=== PATIENT | male | born 1985 | race Caucasian/White ===

== ENCOUNTER 2017-01-05 09:32 | Inpatient (IN) | payer MEDICAID ==
[~2017-01-05] VITALS: Ht 182.9 cm; Wt 112.0 kg
[2017-01-05 10:47] LABS: BASOPHIL % 0.7 % (0-2); PLATELET COUNT 237 x10^3mcL (130-400); RED CELL DISTRIBUTION WIDTH 13.3 % (11.5-14.5)
[2017-01-05 11:16] LABS: CALCIUM 8.6 mg/dL (8.5-10.1); CARBON DIOXIDE 25.9 mmol/L (21-32); CHLORIDE SERUM 105 mmol/L (98-107); CREATININE SERUM 0.8 mg/dL (0.7-1.3); GFR1 > 60 mL/min; GLUCOSE SERUM 98 mg/dL (74-106); POTASSIUM SERUM 4.3 mmol/L (3.5-5.1); SODIUM SERUM 140 mmol/L (136-145)
[2017-01-05 11:20] LABS: ALBUMIN 3.7 g/dL (3.4-5.0); ALKALINE PHOSPHATASE 85 U/L (46-116); ALT/SGPT 45 U/L (16-63); AST/SGOT 21 U/L (15-37); BILIRUBIN TOTAL 0.4 mg/dL (0.20-1.00); LIPASE 105 IU/L (73-393); MAGNESIUM 1.7 mg/dL (1.8-2.4); TOTAL PROTEIN, SERUM 7.2 g/dL (6.4-8.2)
[2017-01-05] MEDS ORDERED: ZANTAC 150150 MG PO (11:46)
[2017-01-05] MEDS ORDERED: NORCO1 TA2 PO (11:47)
[2017-01-05 11:59] LABS: AMPHETAMINE QUAL UR NONE DETECTED (NEG <=1000)
[2017-01-05 13:05] LABS: microscopic required? NO
[2017-01-05 13:09] LABS: UA SPECIFIC GRAVITY 1.025 (1.005-1.035); urine erythrocyte NEGATIVE (NEGATIVE)
[2017-01-05 13:26] LABS: FREE T4 1.03 ng/dL (0.76-1.46); FREE THYROXINE INDEX 2.4 ug/dL (1.4-4.5); T4(THYROXINE) 7.1 ug/dL (4.7-13.3)
[2017-01-05 13:51] LABS: T3 TOTAL 1.06 ng/mL
[2017-01-05 15:44] VITALS: BP 131/64
[2017-01-05 18:08] VITALS: BP 131/66
[2017-01-05 21:36] VITALS: BP 113/54
[2017-01-06 03:07] LABS: BASOPHIL % 0.5 % (0-2); PLATELET COUNT 225 x10^3mcL (130-400); RED CELL DISTRIBUTION WIDTH 13.6 % (11.5-14.5)
[2017-01-06 03:20] LABS: CALCIUM 8.3 mg/dL (8.5-10.1); CHLORIDE SERUM 106 mmol/L (98-107); CREATININE SERUM 0.9 mg/dL (0.7-1.3); GFR1 > 60 mL/min; GLUCOSE SERUM 100 mg/dL (74-106); MAGNESIUM 1.9 mg/dL (1.8-2.4); PHOSPHOROUS 5.3 mg/dL (2.5-4.9); POTASSIUM SERUM 4.4 mmol/L (3.5-5.1); SODIUM SERUM 140 mmol/L (136-145)
[2017-01-06 06:23] VITALS: BP 109/49
[2017-01-06 13:30] VITALS: BP 135/78
[2017-01-06 18:28] VITALS: BP 119/60
[2017-01-06 20:17] VITALS: BP 118/62
[2017-01-07 06:06] VITALS: BP 11/53; BP 111/53
[2017-01-07 06:19] LABS: BASOPHIL % 0.4 % (0-2); PLATELET COUNT 250 x10^3mcL (130-400); RED CELL DISTRIBUTION WIDTH 13.4 % (11.5-14.5)
[2017-01-07 06:25] LABS: CALCIUM 8.7 mg/dL (8.5-10.1); CARBON DIOXIDE 31.6 mmol/L (21-32); CHLORIDE SERUM 104 mmol/L (98-107); CREATININE SERUM 0.8 mg/dL (0.7-1.3); GFR1 > 60 mL/min; GLUCOSE SERUM 97 mg/dL (74-106); MAGNESIUM 2.1 mg/dL (1.8-2.4); PHOSPHOROUS 4.4 mg/dL (2.5-4.9); POTASSIUM SERUM 4.2 mmol/L (3.5-5.1); SODIUM SERUM 143 mmol/L (136-145)
[2017-01-07 08:35] VITALS: BP 114/69
[2017-01-07 08:37] VITALS: BP 114/69
[2017-01-07 09:25] VITALS: BP 113/61
[2017-01-07 09:39] VITALS: BP 115/65
[2017-01-07] MEDS ORDERED: OMEPRAZOLE40 M1 PO (09:59)
[2017-01-07] MEDS ORDERED: CARAFATE1 GM PO (10:00)
[2017-01-07 12:05] VITALS: BP 115/65
== END 2017-01-07 13:34 | disposition home or self-care (01) | DRG 243 ==
LOC: ED 09:32 → DU 12:19 → MU 12:19 → DU 14:53 → MU 01-06 15:46
PROVIDERS: Emergency Medicine; Internal Medicine; ADMIT Family Medicine
PROC: 0DB68ZX Excision of Stomach, Via Natural or Artificial Opening Endoscopic, Diagnostic (ICD-10-PCS; principal; 2017-01-07 09:15)
DX: K21.9 Gastro-esophageal reflux disease without esophagitis (principal); K76.0 Fatty (change of) liver, not elsewhere classified; F12.10 Cannabis abuse, uncomplicated; E83.42 Hypomagnesemia; E78.5 Hyperlipidemia, unspecified; Z68.33 Body mass index [BMI] 33.0-33.9, adult; Z87.891 Personal history of nicotine dependence
CPT/HCPCS: 43235; 80307; 83880; 84439; C9113; G0480; J1200; J1610; J2250; J2270; J2310; J2405; J3010; J3490; J7030; Q0092

== ENCOUNTER 2017-03-11 13:01 | Inpatient (IN) | payer MEDICAID ==
[~2017-03-11] VITALS: Ht 182.9 cm; Wt 112.2 kg
[~2017-03-11 13:01] MED LIST: CARAFATE1 GM PO; NORCO1 TA2 PO; OMEPRAZOLE40 M1 PO; ZANTAC 150150 MG PO
[2017-03-11 13:29] LABS: BASOPHIL % 1.1 % (0-2); PLATELET COUNT 242 x10^3mcL (130-400); RED CELL DISTRIBUTION WIDTH 13.2 % (11.5-14.5)
[2017-03-11 13:41] LABS: CALCIUM 9.4 mg/dL (8.5-10.1); CARBON DIOXIDE 27.7 mmol/L (21-32); CHLORIDE SERUM 103 mmol/L (98-107); GFR1 > 60 mL/min; GLUCOSE SERUM 96 mg/dL (74-106); POTASSIUM SERUM 4.4 mmol/L (3.5-5.1); SODIUM SERUM 141 mmol/L (136-145)
[2017-03-11 13:46] LABS: ALBUMIN 4.5 g/dL (3.4-5.0); ALKALINE PHOSPHATASE 85 U/L (46-116); ALT/SGPT 60 U/L (16-63); AST/SGOT 38 U/L (15-37); BILIRUBIN TOTAL 0.81 mg/dL (0.20-1.00)
[2017-03-11 13:48] LABS: TOTAL PROTEIN, SERUM 8.6 g/dL (6.4-8.2)
[2017-03-11 15:12] VITALS: BP 115/73
[2017-03-11 15:37] LABS: CHOLESTEROL/HDL RATIO 4.1
[2017-03-11 15:43] LABS: FREE T4 1.2 ng/dL (0.76-1.46); FREE THYROXINE INDEX 3.6 ug/dL (1.4-4.5); T4(THYROXINE) 10.6 ug/dL (4.7-13.3)
[2017-03-11 15:59] LABS: T3 TOTAL 1.48 ng/mL
[2017-03-11 18:42] VITALS: BP 101/63
[2017-03-11 21:12] VITALS: BP 113/55
[2017-03-12 05:22] VITALS: BP 116/49
[2017-03-12 06:10] LABS: BASOPHIL % 0.4 % (0-2); PLATELET COUNT 223 x10^3mcL (130-400); RED CELL DISTRIBUTION WIDTH 13.6 % (11.5-14.5)
[2017-03-12 06:22] LABS: CALCIUM 8.6 mg/dL (8.5-10.1); CARBON DIOXIDE 27.6 mmol/L (21-32); CHLORIDE SERUM 106 mmol/L (98-107); CREATININE SERUM 0.8 mg/dL (0.7-1.3); GFR1 > 60 mL/min; GLUCOSE SERUM 97 mg/dL (74-106); PHOSPHOROUS 4.4 mg/dL (2.5-4.9); POTASSIUM SERUM 4.5 mmol/L (3.5-5.1); SODIUM SERUM 144 mmol/L (136-145)
[2017-03-12 08:30] VITALS: BP 124/71
[2017-03-12 11:16] LABS: microscopic required? NO
[2017-03-12 11:24] LABS: UA SPECIFIC GRAVITY 1.025 (1.005-1.035); urine erythrocyte NEGATIVE (NEGATIVE)
[2017-03-12 11:41] LABS: AMPHETAMINE QUAL UR NONE DETECTED (NEG <=1000)
[2017-03-12 14:45] VITALS: BP 128/79
[2017-03-12 17:38] VITALS: BP 127/52; BP 130/80
[2017-03-12 20:56] VITALS: BP 117/71
[2017-03-13 05:17] VITALS: BP 121/55
[2017-03-13 06:00] LABS: BASOPHIL % 0.5 % (0-2); PLATELET COUNT 224 x10^3mcL (130-400); RED CELL DISTRIBUTION WIDTH 13.1 % (11.5-14.5)
[2017-03-13 06:30] LABS: CALCIUM 8.7 mg/dL (8.5-10.1); CARBON DIOXIDE 29.9 mmol/L (21-32); CHLORIDE SERUM 107 mmol/L (98-107); CREATININE SERUM 0.9 mg/dL (0.7-1.3); GFR1 > 60 mL/min; GLUCOSE SERUM 104 mg/dL (74-106); MAGNESIUM 2.1 mg/dL (1.8-2.4); PHOSPHOROUS 4.4 mg/dL (2.5-4.9); POTASSIUM SERUM 4.6 mmol/L (3.5-5.1); SODIUM SERUM 144 mmol/L (136-145)
[2017-03-13 09:30] VITALS: BP 128/45
[2017-03-13] MEDS ORDERED: MOT600 PO (09:58)
[2017-03-13 10:01] VITALS: BP 128/45
== END 2017-03-13 13:20 | disposition home or self-care (01) | DRG 204 ==
LOC: ED 13:01 → DU 14:42
PROVIDERS: Emergency Medicine; ADMIT Family Medicine
DX: R55 Syncope and collapse (principal); N31.8 Other neuromuscular dysfunction of bladder; F32.9 Major depressive disorder, single episode, unspecified; K21.9 Gastro-esophageal reflux disease without esophagitis; M94.0 Chondrocostal junction syndrome [Tietze]; F41.9 Anxiety disorder, unspecified; G47.00 Insomnia, unspecified; E78.5 Hyperlipidemia, unspecified; E66.9 Obesity, unspecified; Z68.33 Body mass index [BMI] 33.0-33.9, adult; Z87.891 Personal history of nicotine dependence
CPT/HCPCS: 83880; 84439; C9113; G0480; J1885; J2270; J2405; J7030; J7040; Q0092

== ENCOUNTER 2017-06-13 21:35 | Inpatient (IN) | payer MEDICAID ==
[~2017-06-13] VITALS: Ht 180.3 cm; Wt 110.7 kg
[~2017-06-13 21:35] MED LIST changes: +MOT600 PO
[2017-06-13 22:17] LABS: BASOPHIL % 0.6 % (0-2); PLATELET COUNT 234 x10^3mcL (130-400); RED CELL DISTRIBUTION WIDTH 13.3 % (11.5-14.5)
[2017-06-13 22:34] LABS: CALCIUM 8.4 mg/dL (8.5-10.1); CARBON DIOXIDE 30.7 mmol/L (21-32); CHLORIDE SERUM 104 mmol/L (98-107); CREATININE SERUM 0.9 mg/dL (0.7-1.3); GFR1 > 60 mL/min; GLUCOSE SERUM 103 mg/dL (74-106); POTASSIUM SERUM 3.7 mmol/L (3.5-5.1); SODIUM SERUM 139 mmol/L (136-145)
[2017-06-13 22:46] LABS: ALBUMIN 3.7 g/dL (3.4-5.0); ALKALINE PHOSPHATASE 80 U/L (46-116); ALT/SGPT 27 U/L (16-63); AST/SGOT 19 U/L (15-37); BILIRUBIN TOTAL 0.34 mg/dL (0.20-1.00); TOTAL PROTEIN, SERUM 7.7 g/dL (6.4-8.2)
[2017-06-13 23:28] LABS: AMPHETAMINE QUAL UR NONE DETECTED (NEG <=1000)
[2017-06-14 00:24] LABS: PHOSPHOROUS 3.7 mg/dL (2.5-4.9)
[2017-06-14 00:32] LABS: T3 TOTAL 1.28 ng/mL
[2017-06-14 00:34] LABS: FREE T4 1.38 ng/dL (0.76-1.46); FREE THYROXINE INDEX 3.1 ug/dL (1.4-4.5); T4(THYROXINE) 8.2 ug/dL (4.7-13.3)
[2017-06-14] MEDS ORDERED: PROTONIX20 MG (00:34)
[2017-06-14 01:21] VITALS: BP 121/65
[2017-06-14 02:17] LABS: microscopic required? YES
[2017-06-14 02:18] LABS: UA SPECIFIC GRAVITY 1.025 (1.005-1.035); urine erythrocyte NEGATIVE (NEGATIVE)
[2017-06-14 05:56] VITALS: BP 129/61
[2017-06-14 09:43] VITALS: BP 102/44
[2017-06-14 13:23] VITALS: BP 146/87
[2017-06-14 18:21] VITALS: BP 120/62
== END 2017-06-14 19:12 | disposition home or self-care (01) | DRG 203 ==
LOC: ED 21:35 → DU 23:23
PROVIDERS: Emergency Medicine; ADMIT Family Medicine
DX: M94.0 Chondrocostal junction syndrome [Tietze] (principal); K29.71 Gastritis, unspecified, with bleeding; R55 Syncope and collapse; N39.0 Urinary tract infection, site not specified; K21.9 Gastro-esophageal reflux disease without esophagitis; M54.9 Dorsalgia, unspecified; G89.29 Other chronic pain; E78.5 Hyperlipidemia, unspecified; E66.9 Obesity, unspecified; Z68.34 Body mass index [BMI] 34.0-34.9, adult; Z22.322 Carrier or suspected carrier of Methicillin resistant Staphylococcus aureus; Z79.1 Long term (current) use of non-steroidal anti-inflammatories (NSAID); Z79.891 Long term (current) use of opiate analgesic
CPT/HCPCS: 83880; 84439; J2060; J2270; J2405; J7030; Q0092

== ENCOUNTER 2017-07-29 10:00 | Emergency (ER) | payer MEDICAID ==
[~2017-07-29 10:00] MED LIST changes: +PROTONIX20 MG
[2017-07-29 11:23] LABS: BASOPHIL % 0.5 % (0-2); PLATELET COUNT 233 x10^3mcL (130-400); RED CELL DISTRIBUTION WIDTH 13.1 % (11.5-14.5)
[2017-07-29 11:49] VITALS: BP 135/67
== END 2017-07-29 11:40 | disposition home or self-care (01) ==
LOC: ED 10:00
PROVIDERS: Emergency Medicine
DX: K59.00 Constipation, unspecified (principal); K21.9 Gastro-esophageal reflux disease without esophagitis; R03.0 Elevated blood-pressure reading, without diagnosis of hypertension
CPT/HCPCS: 36415

== ENCOUNTER 2017-08-05 11:39 | Emergency (ER) | payer MEDICAID ==
[~2017-08-05] VITALS: Ht 180.3 cm; Wt 107.0 kg
[2017-08-05 12:55] LABS: CALCIUM 8.7 mg/dL (8.5-10.1); CARBON DIOXIDE 31.5 mmol/L (21-32); CHLORIDE SERUM 104 mmol/L (98-107); CREATININE SERUM 0.8 mg/dL (0.7-1.3); GFR1 > 60 mL/min; GLUCOSE SERUM 100 mg/dL (74-106); POTASSIUM SERUM 4.2 mmol/L (3.5-5.1); SODIUM SERUM 140 mmol/L (136-145)
[2017-08-05 12:56] LABS: BASOPHIL % 0.3 % (0-2); PLATELET COUNT 237 x10^3mcL (130-400); RED CELL DISTRIBUTION WIDTH 13.2 % (11.5-14.5)
[2017-08-05 12:59] LABS: ALBUMIN 3.8 g/dL (3.4-5.0); ALKALINE PHOSPHATASE 93 U/L (46-116); ALT/SGPT 33 U/L (16-63); AST/SGOT 18 U/L (15-37); BILIRUBIN TOTAL 0.7 mg/dL (0.20-1.00)
[2017-08-05 14:52] LABS: microscopic required? NO
[2017-08-05 15:00] LABS: UA SPECIFIC GRAVITY >=1.030 (1.005-1.035); urine erythrocyte NEGATIVE (NEGATIVE)
[2017-08-05 15:13] LABS: AMPHETAMINE QUAL UR NONE DETECTED (NEG <=1000)
[2017-08-05 16:36] VITALS: BP 149/86
== END 2017-08-05 16:40 | disposition home or self-care (01) ==
LOC: ED 11:39
PROVIDERS: Emergency Medicine
DX: R55 Syncope and collapse (principal); R07.9 Chest pain, unspecified; R42 Dizziness and giddiness; R06.02 Shortness of breath; R11.2 Nausea with vomiting, unspecified; K21.9 Gastro-esophageal reflux disease without esophagitis
CPT/HCPCS: 36415; 83880; 85378; Q0092

== ENCOUNTER 2018-12-03 09:42 | Emergency (ER) | payer MEDICAID ==
[~2018-12-03] VITALS: Ht 180.3 cm; Wt 127.5 kg
[2018-12-03 10:02] VITALS: Ht 180.3 cm; Wt 127.5 kg
[2018-12-03 12:14] LABS: BASOPHIL % 0.7 % (0-2); PLATELET COUNT 292 x10^3mcL (130-400); RED CELL DISTRIBUTION WIDTH 13.1 % (11.5-14.5)
[2018-12-03 13:00] LABS: CALCIUM 8.9 mg/dL (8.5-10.1); CARBON DIOXIDE 30.6 mmol/L (21-32); CHLORIDE SERUM 105 mmol/L (98-107); CREATININE SERUM 0.8 mg/dL (0.7-1.3); GFR1 > 60 mL/min; GLUCOSE SERUM 97 mg/dL (74-106); POTASSIUM SERUM 4.7 mmol/L (3.5-5.1); SODIUM SERUM 140 mmol/L (136-145)
[2018-12-03 13:04] LABS: ALKALINE PHOSPHATASE 89 U/L (46-116); ALT/SGPT 71 U/L (16-63); AMYLASE 59 U/L (25-115); AST/SGOT 30 U/L (15-37); BILIRUBIN TOTAL 0.2 mg/dL (0.20-1.00); CHOLESTEROL 198 mg/dL (<200); HDL CHOLESTEROL 54 mg/dL (40-60); LIPASE 218 IU/L (73-393); TOTAL PROTEIN, SERUM 7.7 g/dL (6.4-8.2)
[2018-12-03 13:07] LABS: ALBUMIN 3.2 g/dL (3.4-5.0)
[2018-12-03 13:14] LABS: microscopic required? NO
[2018-12-03 13:31] LABS: urine erythrocyte NEGATIVE (NEGATIVE)
[2018-12-03 13:37] LABS: AMPHETAMINE QUAL UR NONE DETECTED (See below)
[2018-12-03 15:55] VITALS: BP 125/69
[2018-12-03 15:57] LABS: MAGNESIUM 1.9 mg/dL (1.8-2.4); PHOSPHOROUS 3.8 mg/dL (2.5-4.9)
[2018-12-03 15:58] LABS: CHOLESTEROL/HDL RATIO 3.7
== END 2018-12-03 15:55 | disposition left against medical advice (07) ==
LOC: ED 09:42
PROVIDERS: Emergency Medicine; Internal Medicine
DX: I24.9 Acute ischemic heart disease, unspecified (principal); M79.89 Other specified soft tissue disorders; F12.90 Cannabis use, unspecified, uncomplicated; E66.01 Morbid (severe) obesity due to excess calories; K21.9 Gastro-esophageal reflux disease without esophagitis; Z68.39 Body mass index [BMI] 39.0-39.9, adult; Z90.49 Acquired absence of other specified parts of digestive tract
CPT/HCPCS: 36415; 83880; 85378; Q0092

== ENCOUNTER 2018-12-12 22:54 | Inpatient (IN) | payer MEDICAID ==
[~2018-12-12] VITALS: Ht 180.3 cm; Wt 139.9 kg
[2018-12-12 23:20] VITALS: Ht 180.3 cm; Wt 139.9 kg
[2018-12-13 01:15] LABS: CALCIUM 8.3 mg/dL (8.5-10.1); CARBON DIOXIDE 27.4 mmol/L (21-32); CHLORIDE SERUM 106 mmol/L (98-107); CREATININE SERUM 0.8 mg/dL (0.7-1.3); GFR1 > 60 mL/min; GLUCOSE SERUM 108 mg/dL (74-106); POTASSIUM SERUM 4.5 mmol/L (3.5-5.1); SODIUM SERUM 141 mmol/L (136-145)
[2018-12-13 01:20] LABS: ALKALINE PHOSPHATASE 104 U/L (46-116); ALT/SGPT 73 U/L (16-63); AST/SGOT 35 U/L (15-37); BASOPHIL % 0.7 % (0-2); BILIRUBIN TOTAL 0.19 mg/dL (0.20-1.00); LIPASE 153 IU/L (73-393); PLATELET COUNT 258 x10^3mcL (130-400); RED CELL DISTRIBUTION WIDTH 12.6 % (11.5-14.5); TOTAL PROTEIN, SERUM 6.7 g/dL (6.4-8.2)
[2018-12-13 01:23] LABS: ALBUMIN 2.9 g/dL (3.4-5.0)
[2018-12-13 02:51] LABS: AMPHETAMINE QUAL UR NONE DETECTED (See below)
[2018-12-13 04:04] LABS: CHOLESTEROL/HDL RATIO 3.4; MAGNESIUM 1.9 mg/dL (1.8-2.4); PHOSPHOROUS 4.6 mg/dL (2.5-4.9)
[2018-12-13 04:58] VITALS: BP 108/56
[2018-12-13 09:50] VITALS: BP 135/67
[2018-12-13 11:02] VITALS: BP 135/67
[2018-12-13 15:32] LABS: microscopic required? NO
[2018-12-13 15:43] LABS: UA SPECIFIC GRAVITY >=1.030 (1.005-1.035); urine erythrocyte NEGATIVE (NEGATIVE)
== END 2018-12-13 17:11 | disposition home or self-care (01) | DRG 243 ==
LOC: ED 22:54 → DU 12-13 03:21
PROVIDERS: Emergency Medicine; ADMIT General Practice
DX: K21.9 Gastro-esophageal reflux disease without esophagitis (principal); N17.0 Acute kidney failure with tubular necrosis; E44.0 Moderate protein-calorie malnutrition; Z68.41 Body mass index [BMI] 40.0-44.9, adult; F12.10 Cannabis abuse, uncomplicated; E66.01 Morbid (severe) obesity due to excess calories; Z71.3 Dietary counseling and surveillance
CPT/HCPCS: J2270; J7030; Q0092

== ENCOUNTER 2019-02-15 19:04 | Inpatient (IN) | payer MEDICAID ==
[~2019-02-15] VITALS: Ht 180.3 cm; Wt 131.5 kg
[2019-02-15 19:11] VITALS: Ht 180.3 cm; Wt 131.5 kg
--- NOTE | 2019-02-15 19:14 | NUR ---
EKG IN PROGRESS.
--- NOTE | 2019-02-15 19:43 | NUR ---
PT AAOX4, RESPIRATIONS EVEN AND UNLABORD. 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 PT DENIES ANYTHING PROVOKED PAIN, PT ABLE TO SPEAK IN COMPLETE SENTENCES AND DOES NOT APPEAR TO BE IN DISTRESS. PT HOOKED UP TO MONITOR NSR, O2 SAT 98% ON RA. PT SKIN IS WARM AND DRY. 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
--- NOTE | 2019-02-15 20:10 | NUR ---
XRAY IN PROGRESS AT BEDSIDE.
[2019-02-15 20:13] LABS: microscopic required? NO
[2019-02-15 20:14] LABS: BASOPHIL % 0.4 % (0-2); PLATELET COUNT 237 x10^3mcL (130-400); RED CELL DISTRIBUTION WIDTH 14.1 % (11.5-14.5)
[2019-02-15 20:18] LABS: urine erythrocyte NEGATIVE (NEGATIVE)
[2019-02-15 20:22] LABS: CALCIUM 8.2 mg/dL (8.5-10.1); CARBON DIOXIDE 25.9 mmol/L (21-32); CHLORIDE SERUM 103 mmol/L (98-107); CREATININE SERUM 0.9 mg/dL (0.7-1.3); GFR1 > 60 mL/min; GLUCOSE SERUM 104 mg/dL (74-106); POTASSIUM SERUM 3.8 mmol/L (3.5-5.1); SODIUM SERUM 137 mmol/L (136-145)
[2019-02-15 20:28] LABS: ALBUMIN 3.6 g/dL (3.4-5.0); ALKALINE PHOSPHATASE 73 U/L (46-116); ALT/SGPT 55 U/L (16-63); AST/SGOT 30 U/L (15-37); BILIRUBIN TOTAL 0.33 mg/dL (0.20-1.00); CHOLESTEROL 150 mg/dL (<200); CHOLESTEROL/HDL RATIO 3.9; HDL CHOLESTEROL 38 mg/dL (40-60); LIPASE 155 IU/L (73-393); TOTAL PROTEIN, SERUM 7.2 g/dL (6.4-8.2); TRIGLYCERIDES 173 mg/dL (<150)
--- NOTE | 2019-02-15 20:31 | NUR ---
PT SITTING UP IN BED, NO S/S OF DISTRESS NOTED.
[2019-02-15 20:50] LABS: FREE T4 0.98 ng/dL (0.76-1.46); FREE THYROXINE INDEX 2.3 ug/dL (1.4-4.5); T4(THYROXINE) 6.5 ug/dL (4.7-13.3)
[2019-02-15 20:52] LABS: T3 TOTAL 1.35 ng/mL
--- NOTE | 2019-02-15 21:23 | NUR ---
PT IS LAYING IN BED, NO S/S OF DISTRESS ARE NOTED AT THIS TIME. PT IS SLEEPING BUT AROUSABLE.
[2019-02-15 22:23] LABS: AMPHETAMINE QUAL UR NONE DETECTED (See below)
--- NOTE | 2019-02-15 22:29 | NUR ---
REPORT GIVEN TO ALISSA EMMANUEL RN
[2019-02-15 22:57] VITALS: BP 104/53
--- NOTE | 2019-02-15 23:07 | NUR ---
RECEIVED PT FROM ER, PT ADMIT FOR SYNCOPE AND CHEST PAIN, PT IS A/O X4, VERBAL RESPONSIVE AT THIS MOMENT, PT IS DENY ANY HEADACHE OR DIZZINESS, LUNG SOUND CLEAR BILATERAL, NO COUGH, NO SOB, PT IS ON TELE 5, NSR, STILL C/O CHEST PAIN 10/10, PRESSURE AT LEFT SIDE RADIATE TO LEFT ARM, BOWEL SOUND PRESENT ALL 4 QUADRANTS, NO DISTENTION, NO TENDER. PEDAL PULSE PRESENT BOTH FEET, TRACE EDEMA BLE, IV AT LEFT AC, NO LEAKING, NO INFILTRATION. ALL ADLS ASSIST, ALL NEED MET, CALL LIGHT IN REACH, WILL CONTINUE TO MONITOR.
--- NOTE | 2019-02-15 23:13 | NUR ---
REC'D REPORT FROM KATIE ONEAL. PT RESTING IN BED. C/O 10/10 L SIDED CHEST PRESSURE RADIATING TO L SIDE OF NECK AND L ELBOW. ALSO REQUESTING FOOD. NITRO GIVEN PER ORDER. IV TO LAC PATENT AND INFUSING NS @ 125 ML/HR. SITE WNL. WILL SPEAK TO RESIDENT REGARDING FOOD. ORIENTED TO DEVICES AND SURRROUNDINGS. CALL LIGHT WITHIN REACH, BED AT LOWEST POSITION. WILL CONTINUE TO MONITOR.
--- NOTE | 2019-02-15 23:29 | NUR ---
DR. FREEDMAN MADE AWARE OF PT'S REQUEST FOR FOOD
[2019-02-15 23:57] LABS: PHOSPHOROUS 4.4 mg/dL (2.5-4.9)
--- NOTE | 2019-02-16 00:09 | NUR ---
PT RESTING IN BED WITH EYES CLOSED. APPEARS TO BE SLEEPING. LAYING ON L SIDE. NO S/SX OF PAIN NOTED. WILL CONTINUE TO MONITOR.
[2019-02-16 05:22] VITALS: BP 101/55
[2019-02-16 06:40] LABS: CALCIUM 7.9 mg/dL (8.5-10.1); CARBON DIOXIDE 24.6 mmol/L (21-32); CHLORIDE SERUM 106 mmol/L (98-107); CREATININE SERUM 0.9 mg/dL (0.7-1.3); GFR1 > 60 mL/min; GLUCOSE SERUM 125 mg/dL (74-106); POTASSIUM SERUM 3.9 mmol/L (3.5-5.1); SODIUM SERUM 140 mmol/L (136-145)
--- NOTE | 2019-02-16 06:55 | NUR ---
PT SNORING. LAYING ON R SIDE. NO S/SX OF PAIN. NO FURTHER COMPLAINTS OF CP. CALL LIGHT WITHIN REACH, BED AT LOWEST POSITION. WILL ENDORSE TO DAY NURSE.
--- NOTE | 2019-02-16 07:30 | NUR ---
PT ENDORSE TO ME THIS MORNING/ LAYING IN BED RESTING. AA/O X4 BREATHING EVEN AND UNLABORED ON RA. NO ACUTE RESP DISTRESS OR SOB NOTED. TELE 5 NSR, HR 68 NOTED. DENIES ANY CP OR PRESSURE. VOIDS FREELY. AMB. IV TO THE LAC INTACT AND PATENT.NO REDNESS OR SWELLING NOTED. WILL CONTINUE TO MONITOR.
[2019-02-16 08:40] LABS: BASOPHIL % 0.4 % (0-2); PLATELET COUNT 215 x10^3mcL (130-400); RED CELL DISTRIBUTION WIDTH 14.5 % (11.5-14.5)
[2019-02-16 08:41] VITALS: BP 124/50
[2019-02-16 11:50] VITALS: BP 152/53
--- NOTE | 2019-02-16 12:12 | NUR ---
PT STATED NEEDS NOTE FOR WORK AND HAS 3/10 GEN PAIN, REFUSING TO TAKE ANY TYLENOL AT THIS TIME. DR. KATIE LOZA OF NOTED. WILL CONTINUE TO MONITOR.
[2019-02-16 15:20] VITALS: BP 122/48
[2019-02-16 18:28] VITALS: BP 122/48
--- NOTE | 2019-02-16 18:39 | NUR ---
DISCHARGE INSTRUCTIONS GIVEN TO PT INCLUDING MEDICAL FOLLOW-UP W/ PCP. PT VERBALIZES UNDERSTANDING. HEPLOCK ON THE LFA REMOVED, CATHETER INTACT, NO BLEEDING/ERYTHEMA/SWELLING NOTED. PT AAOX4, W/ STEADY GAIT, NO C/O PAIN AND SOB. PT WALKED DOWN TO THE LOBBY W/ RANCH HAND LIVESTOCK MISA. PT DISCHARGED.
== END 2019-02-16 18:38 | disposition home or self-care (01) | DRG 203 ==
LOC: ED 19:04 → DU 22:00 → MU 02-16 11:49
PROVIDERS: Specialist; ADMIT Family Medicine
DX: M94.0 Chondrocostal junction syndrome [Tietze] (principal); E66.01 Morbid (severe) obesity due to excess calories; K21.9 Gastro-esophageal reflux disease without esophagitis; F12.10 Cannabis abuse, uncomplicated; E78.1 Pure hyperglyceridemia; Z68.41 Body mass index [BMI] 40.0-44.9, adult; Z82.49 Family history of ischemic heart disease and other diseases of the circulatory system
CPT/HCPCS: 83880; 84439; J2270; J2405; J7030; Q0092